=== PATIENT | male | born 1985 | race Hispanic/Latino ===

== ENCOUNTER 2022-03-07 18:10 | Emergency (ER) | payer OTHER ==
[~2022-03-07] VITALS: Ht 165.1 cm; Wt 68.0 kg
[2022-03-07] MEDS ORDERED: CEPHALEXIN 500 MG CAPSULE PO ONE (18:30)
[2022-03-07] MEDS ORDERED: TETANUS/DIPHTHERIA TOXOID [ADULT] 0.5 ML VIAL IM ONE (18:30)
[2022-03-07] MEDS ORDERED: CEPH500B PO (19:10)
[2022-03-07 19:42] VITALS: BP 106/60
== END 2022-03-07 19:52 | disposition home or self-care (01) ==
LOC: EDH 18:10
DX: S71.112A Laceration without foreign body, left thigh, initial encounter (principal); X58.XXXA Exposure to other specified factors, initial encounter; Y93.89 Activity, other specified; Y92.89 Other specified places as the place of occurrence of the external cause; Y99.8 Other external cause status
CPT/HCPCS: 12001; 73551; 90471; 90714

== ENCOUNTER 2022-03-20 20:10 | Emergency (ER) | payer OTHER ==
[~2022-03-20] VITALS: Ht 165.1 cm; Wt 74.8 kg
[~2022-03-20 20:10] MED LIST: CEPH500B PO
[2022-03-20 20:12] VITALS: BP 151/90
[2022-03-20] MEDS ORDERED: CEPH500T PO (21:00)
== END 2022-03-20 21:12 | disposition home or self-care (01) ==
LOC: EDH 20:10
DX: T81.30XA Disruption of wound, unspecified, initial encounter (principal)
CPT/HCPCS: 73562